=== PATIENT | female | born 1970 | race Caucasian/White ===

== ENCOUNTER 2018-06-02 09:45 | Emergency (ER) | payer OTHER ==
[~2018-06-02] VITALS: Ht 154.9 cm; Wt 56.7 kg
[~2018-06-02 09:45] MED LIST: CALC-1095 PO; CHOL10002 PO; DICY10CA21 PO; FERR325T28 PO; FOLI1TAB16 PO; LACT1CAP57 PO; LEVO500T2 PO; LIPA1CAP27 PO; MERC50TA PO; MESA250C2 PO; METO-295 PO; METR-147 PO; NYST5ORA PO; PANT40TA2 PO; PRED20TA PO
--- NOTE | 2018-06-02 10:09 | NUR ---
PT IS IN ROOM #2A. DR VELASQUEZ EVALUATED THE PT.
[2018-06-02] MEDS ORDERED: PRED20TA PO (10:24)
[2018-06-02] MEDS ORDERED: CALC3.8S NS (10:28)
--- NOTE | 2018-06-02 10:57 | NUR ---
Patient discharged to home in stable conditon. Written and verbal after care instructions given. Patient verbalizes understanding of instructions.
[2018-06-02 10:58] VITALS: BP 132/78
== END 2018-06-02 10:59 | disposition home or self-care (01) ==
LOC: ER 09:45
DX: M72.2 Plantar fascial fibromatosis (principal); H11.31 Conjunctival hemorrhage, right eye; J45.909 Unspecified asthma, uncomplicated; Z88.1 Allergy status to other antibiotic agents; Z88.8 Allergy status to other drugs, medicaments and biological substances; Z79.899 Other long term (current) drug therapy; Z79.2 Long term (current) use of antibiotics
CPT/HCPCS: 73630; A4663

== ENCOUNTER 2018-06-05 06:14 | Emergency (ER) | payer OTHER ==
[~2018-06-05] VITALS: Ht 154.9 cm; Wt 56.7 kg
[~2018-06-05 06:14] MED LIST changes: +CALC3.8S NS; -DICY10CA21 PO; -FOLI1TAB16 PO; -LACT1CAP57 PO; -LEVO500T2 PO; -LIPA1CAP27 PO; -MERC50TA PO; -MESA250C2 PO; -METO-295 PO; -METR-147 PO; -NYST5ORA PO
[2018-06-05] MEDS ORDERED: ONDANSETRON 4 MG/2 ML VIAL ONE (07:10)
[2018-06-05] MEDS ORDERED: HYDROMORPHONE 1 MG/1 ML DISP.SYRIN ONE (07:10)
[2018-06-05] MEDS ORDERED: ONDANSETRON 4 MG/2 ML VIAL IM ONE (07:15)
[2018-06-05] MEDS ORDERED: HYDROMORPHONE 1 MG/1 ML DISP.SYRIN IM ONE (07:15)
--- NOTE | 2018-06-05 07:20 | NUR ---
Patient discharged to home in stable conditon. Written and verbal after care instructions given. Patient verbalizes understanding of instructions. Patient ambulated out of ER with stable gait.
[2018-06-05 07:21] VITALS: BP 142/88
== END 2018-06-05 07:22 | disposition home or self-care (01) ==
LOC: ER 06:16
DX: M54.41 Lumbago with sciatica, right side (principal); J45.909 Unspecified asthma, uncomplicated; Z88.1 Allergy status to other antibiotic agents; Z79.899 Other long term (current) drug therapy; Z79.2 Long term (current) use of antibiotics
CPT/HCPCS: 96372 ×2; 99283; J1170; J2405; A4663